=== PATIENT | female | born 2000 | race Caucasian/White ===

== ENCOUNTER 2021-12-05 02:25 | Emergency (ER) | payer OTHER, BC ==
[~2021-12-05] VITALS: Ht 160 cm; Wt 61.2 kg
[2021-12-05 02:34] VITALS: BP_SYST 132
[2021-12-05] MEDS ORDERED: BACI15OI13 TP (04:58)
[2021-12-05] MEDS ORDERED: ACET-2634 PO (04:58)
[2021-12-05] MEDS: LIDOCAINE/EPI 1% 1:100000 20 ML VIAL INJ ONE (06:04)
[2021-12-05] MEDS: BACITRACIN 1 GM OINT TP ONE (06:04)
[2021-12-05] MEDS ORDERED: cephALEXin 500 MG CAPSULE PO ONE (06:15)
[2021-12-05] MEDS: ACETAMINOPHEN 500 MG TABLET PO ONE (06:24)
[2021-12-05] MEDS ORDERED: AMOX500T2 PO (06:25)
[2021-12-05] MEDS ORDERED: AMPICILLIN SODIUM/SULBACTAM NA 3 GM VIAL ONE (06:31)
[2021-12-05] MEDS: AMPICILLIN SODIUM/SULBACTAM NA 3 GM in NS 100 ML IV ONE (06:39)
[2021-12-05 10:38] VITALS: BP_SYST 130
== END 2021-12-05 10:38 | disposition home or self-care (01) ==
LOC: SED 02:25
DX: S01.111A Laceration without foreign body of right eyelid and periocular area, initial encounter (principal); Z79.899 Other long term (current) drug therapy; V49.40XA Driver injured in collision with unspecified motor vehicles in traffic accident, initial encounter; Y93.89 Activity, other specified; Y92.89 Other specified places as the place of occurrence of the external cause; Y99.8 Other external cause status
CPT/HCPCS: 99284; 70450; 96365; 71045; 70486; 72125; 12011; 76376; J0295